=== PATIENT | female | born 1945 | race Caucasian/White ===

== ENCOUNTER 2017-10-20 06:59 | Day surgery (SDC) | payer OTHER ==
[~2017-10-20] VITALS: Ht 160 cm; Wt 83.4 kg
[~2017-10-20 06:59] MED LIST: Duragesic TD; EXCEDRIN PO; Feosol PO; HYDROCHLOROTHIA25 MG PO; HYDROCODON-ACE1 EAC7 PO; Hydrodiuril,Oretic,E PO; MICROZIDE12.5 M1 PO; MULTI-VITAMIN1 EAC4 PO; PROTONIX40 MG PO; Percocet 5/325,Endoc PO; VITAMIN B122500 MCG PO
[2017-10-20 08:31] VITALS: BP 143/68
[2017-10-20] MEDS ORDERED: NORCO 5/3251 TABLET PO (11:34)
[2017-10-20 12:15] VITALS: BP 173/84
[2017-10-20 13:15] VITALS: BP 145/70
[2017-10-20 14:47] VITALS: BP 169/81
== END 2017-10-20 14:50 | disposition home or self-care (01) ==
LOC: SDC 06:59
DX: K80.10 Calculus of gallbladder with chronic cholecystitis without obstruction (principal); I10 Essential (primary) hypertension; E66.9 Obesity, unspecified; Z68.33 Body mass index [BMI] 33.0-33.9, adult; Z86.19 Personal history of other infectious and parasitic diseases; Z88.5 Allergy status to narcotic agent; Z87.442 Personal history of urinary calculi; Z87.440 Personal history of urinary (tract) infections
CPT/HCPCS: 74300; 88304; J1100; J1170; J2250; J2405; J2710; J2765; J3010; J7643; S0020; S0074